=== PATIENT | male | born 1955 | race Native Hawaiian/Other Pacific Islander ===

== ENCOUNTER 2017-03-28 13:38 | Emergency (ER) | payer OTHER ==
[~2017-03-28] VITALS: Ht 182.9 cm; Wt 88.5 kg
[2017-03-28 14:00] VITALS: BP 136/84; TEMP 98.7
[2017-03-28] MEDS ORDERED: GABA300C2 PO (14:08)
[2017-03-28] MEDS ORDERED: XANAX XR1 MG OR (14:09)
[2017-03-28] MEDS ORDERED: HYDR5TAB9 PO (14:09)
[2017-03-28] MEDS ORDERED: LISI10TA11 PO (14:14)
== END 2017-03-28 15:10 | disposition left against medical advice (07) ==
LOC: ED 13:38
DX: R07.89 Other chest pain (principal)
CPT/HCPCS: 99281

== ENCOUNTER 2018-04-28 14:40 | Emergency (ER) | payer OTHER ==
[~2018-04-28] VITALS: Ht 182.9 cm; Wt 102.1 kg
[~2018-04-28 14:40] MED LIST: GABA300C2 PO; HYDR5TAB9 PO; LISI10TA11 PO; XANAX XR1 MG OR
[2018-04-28 15:10] VITALS: BP 140/99; TEMP 97.9
[2018-04-28] MEDS ORDERED: AMLODIPINE BESYLATE PO (15:44)
[2018-04-28] MEDS ORDERED: ROSUVASTATIN CA20 MG PO (15:47)
[2018-04-28] MEDS ORDERED: VITAMIN D50000 UNIT PO (15:47)
[2018-04-28] MEDS ORDERED: ESOMEPRAZOLE MA40 M1 PO (15:48)
[2018-04-28] MEDS ORDERED: NEURONTIN800 MG PO (15:48)
[2018-04-28] MEDS ORDERED: PROVENTIL INH (15:49)
[2018-04-28] MEDS ORDERED: XANAX XR1 MG PO (15:50)
[2018-04-28] MEDS ORDERED: LISI20TA31 PO (15:51)
[2018-04-28] MEDS ORDERED: ALL DAY ALLG10 MG PO (15:52)
[2018-04-28] MEDS ORDERED: HYDR10TA47A PO (15:52)
[2018-04-28] MEDS ORDERED: CITA20TA2 PO (15:54)
[2018-04-28] MEDS ORDERED: BACL10TA4 PO (15:54)
[2018-04-28] MEDS ORDERED: BEVESPI AEROSPH1 AER INH (15:57)
[2018-04-28] MEDS ORDERED: BENZONATATE200 MG PO (15:58)
== END 2018-04-28 16:20 | disposition home or self-care (01) ==
LOC: ED 14:40
DX: S60.031A Contusion of right middle finger without damage to nail, initial encounter (principal); W22.8XXA Striking against or struck by other objects, initial encounter; Y93.89 Activity, other specified; Y92.89 Other specified places as the place of occurrence of the external cause
CPT/HCPCS: 99282

== ENCOUNTER 2020-08-11 11:17 | Emergency (ER) | payer OTHER ==
[~2020-08-11] VITALS: Ht 182.9 cm; Wt 102.1 kg
[~2020-08-11 11:17] MED LIST changes: +ALL DAY ALLG10 MG PO; +AMLODIPINE BESYLATE PO; +BACL10TA4 PO; +BENZONATATE200 MG PO; +BEVESPI AEROSPH1 AER INH; +CITA20TA2 PO; +ESOMEPRAZOLE MA40 M1 PO; +HYDR10TA47A PO; +LISI20TA31 PO; +NEURONTIN800 MG PO; +PROVENTIL INH; +ROSUVASTATIN CA20 MG PO; +VITAMIN D50000 UNIT PO; +XANAX XR1 MG PO
[2020-08-11 12:45] VITALS: BP 124/75; TEMP 98.5
== END 2020-08-11 12:45 | disposition home or self-care (01) ==
LOC: ED 11:17
DX: S90.121A Contusion of right lesser toe(s) without damage to nail, initial encounter (principal); L03.031 Cellulitis of right toe; W22.09XA Striking against other stationary object, initial encounter; Y92.89 Other specified places as the place of occurrence of the external cause
CPT/HCPCS: 99282; 99283

== ENCOUNTER 2020-09-29 08:58 | Inpatient (IN) | payer OTHER ==
[2020-09-29] VITALS (7 sets, daily range): BP systolic 129–168; BP diastolic 79–98; TEMP 97.9–99.9; Ht 182.9 cm; Wt 99.0 kg
[~2020-09-29] VITALS: Ht 182.9 cm; Wt 99.0 kg
[2020-09-29 09:46] LABS: PLATELET COUNT 361 K/uL (142-355)
[2020-09-29 09:53] LABS: POTASSIUM 3.8 mmol/L (3.6-5.2); SODIUM 140 mmol/L (136-145)
[2020-09-29 10:02] LABS: PARTIAL THROMBOPLASTIN TIME 24.6 SECONDS (24.5-33.6)
[2020-09-29] MEDS ORDERED: BACLOFEN20 MG PO (17:14)
[2020-09-29] MEDS ORDERED: AMBIEN5 MG PO (17:14)
[2020-09-29] MEDS ORDERED: DULO30CA PO (17:16)
[2020-09-29] MEDS ORDERED: ACET-689 PO (17:18)
[2020-09-29] MEDS ORDERED: TRAM50TA PO (17:18)
--- NOTE | 2020-09-29 17:42 | NUR ---
09/29/20 1720 IV TO THE RAC REMOVED DUE TO INFILTRATION. APPLIED 2X2 AND SECURED WITH TAPE.
--- NOTE | 2020-09-29 19:45 | NUR ---
ENTERED PATIENT'S ROOM AT THIS TIME. PATIENT SITTING UP IN BED WATCHING TV. RESPIRATIONS EVEN AND UNLABORED. NAD NOTED. 22G TO LEFT FA FLUSHED WITH NS. NS @ 75 ML/HR INFUSING AT THIS TIME. INSTRUCTED PATIENT NOT TO PULL AT THE IV OR LINE. BED ALARM TURNED ON FOR SAFETY PRECAUTIONS. PATIENT IS ALERT AND ORIENTED, BUT DOES SEEM TO HAVE PARANOID TENDENCIES AT TIMES. BED LOCKED AND IN LOWEST POSITION. CALL LIGHT WITHIN REACH.
[2020-09-30] VITALS: BP 111/69; TEMP 98.2
--- NOTE | 2020-09-30 03:50 | NUR ---
I'VE ENTERED PATIENT'S ROOM MULTIPLE TIMES THIS SHIFT. HE IS ALERT AND ORIENTED. NO COMBATIVENESS OR CONFUSION SHOWN THIS SHIFT, BUT PATIENT HAS NOT SLEPT. HE IS LYING IN BED WATCHING TV. HE STATES THAT HE IS READY TO GO HOME IN THE MORNING. BED LOCKED AND IN LOWEST POSITION. CALL LIGHT WITHIN REACH. BED ALARM ON. [facility] INTACT.
[2020-09-30 04:00] VITALS: BP 137/77; TEMP 98.2
--- NOTE | 2020-09-30 06:00 | NUR ---
PATIENT LYING IN BED WATCHING TV. NAD NOTED. 22G TO LEFT FA INTACT WITH NO ERYTHEMA OR SWELLING NOTED. NS INFUSING @ 75ML/HR. BED ALARM ON. CALL LIGHT WITHIN REACH.
--- NOTE | 2020-09-30 06:34 | NUR ---
Patient screened as positive for the RD to review with a Dx. of Leukoctosis and is on a 2 gm Na diet plan and is a 65YOM and is 6 feet at 218.5 lbs. and IBW = 178+/-10% (160 to 196 lbs.) and kcal needs for IBW x 25 = 2000, x 30 = 2400, x 35 = 2800, x 40 = 3200, protein needs x 1.0 to 1.5 = 65 to 121 grams per day and fluids x 25 to 40 = 2000 to 3200 ml/cc per day. This patient left the facilit AMA and RD reviewed all medications and labs and labs reveal WBC, MVV, RDW, platelet count and glucose 134 all elevated and RBC depressed. BMI at 29.6 and is overweight and is 123% of IBW. History of smoking and is eating 75% of meals. RD Recommendations: 1-Monitor Labs 2-PT to work with the patient 3-OT to work with the patient 4-Add High Fiber to the diet plan and may want to add NCS or RCS 5-If won't follow the diet have a dietary refusal form signed 6-HOnor all food preferences and state on diet card and offere substitutes with meals
--- NOTE | 2020-09-30 07:50 | NUR ---
PCT IN TO OBTAIN AM V/S. PT LAYING IN BED WATCHING TV. NAD NOTED. IVF INFUSING WITHOUT DIFFICULTY.
[2020-09-30 08:00] VITALS: BP 131/73; TEMP 97.9
--- NOTE | 2020-09-30 08:25 | NUR ---
PT CALLED TO [facility] C/O EYE PAIN. PT ASSESSMENT COMPLETED. MILD REDNESSNOTED TO PT'S LEFT EYE PT NOTED TO BE RUBBING EYE. ENCOURAGED PT NOT TO RUB EYE. PT DENIES ANY BURNING OR ITCHING IN EYE JUST PAIN. DR. PEREZ NOTIFIED.
--- NOTE | 2020-09-30 08:30 | NUR ---
EDUCATED PT ON REASON FOR ADMISSION, WAITING FOR LAB WORK AND FOR DR. PEREZ TO MAKE ROUNDS AND EXPLAINED TO HIM THAT IT COULD BE BETWEEN NOW AND LUNCH TIME. PT VERBALIZED UNDERSTANDING.
--- NOTE | 2020-09-30 08:35 | NUR ---
CALLED [phone] TO SPEAK WITH EMERGENCY CONTACT NO ONE ANSWERED THE PHONE.
[2020-09-30 08:44] LABS: PLATELET COUNT 254 K/uL (142-355)
--- NOTE | 2020-09-30 08:45 | NUR ---
IN TO GIVE PT AM MEDS. PT TOLERATED AM MEDS WELL. PT EATING BREAKFAST. PT REPORTS HE IS READY TO GO HOME. EDUCATED ON DISCHARGE PROCESS AND BLOOD WORK.
[2020-09-30 08:59] LABS: POTASSIUM 3.4 mmol/L (3.6-5.2)
--- NOTE | 2020-09-30 10:00 | NUR ---
PT CALLED TO [facility] REQUESTING HIS CLOTHES. PT REMINDED THAT HE DID NOT HAVE ANY CLOTHES WHEN HE CAME. PT STATES "OH GOD I FORGOT, I'LL CALL GAB[facility] NOW AND SEE IF HE CAN GO TO MY HOUSE AND GET ME SOME" PT NOTED TO HAVE PULLED HIS 22G IV TO LEFT FOREARM OUT. PT REPORTS I'M LEAVING. 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 PT THEN STATES "NO RENU SAID BETWEEN 0800 AND 1000, IS THE LAB WORK BACK?" NOTIFIED PT LAB WORK IS BACK AND WE ARE WAITING FOR FURTHER ORDERS, PT THEN STATES "UNLESS SHE WALKS IN THE DOOR RIGHT NOW I AM LEAVING" ENCOURAGED PT TO WAIT FOR DISCHARGE AT LEAST, BUT THAT HE COULD CALL FOR CLOTHES AND A RIDE IF HE CHOOSES NOT TO WAIT. PT STATES "OK I'LL GO AHEAD AND CALL AND IF SHE ISNT HERE IN A FEW MINUTES I AM LEAVING" DR. PEREZ NOTIFIED BY ELOISE BONILLA RN PER ELOISE DISCHARGE ORDERS HAVE BEEN GIVEN JUST LET PT KNOW. 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 PT AGREED TO WAIT ON DISCHARGE PAPERS.
--- NOTE | 2020-09-30 10:40 | NUR ---
PT GIVEN DISCHARGE PAPERS AT THIS TIME. EXPLAINED DISCHARGE AND HOME MEDICATIONS TO CON'T WITH PT. PT TO FOLLOW UP WITH HIS PCP IN 3-5 DAYS. PT REPORTS HE ALREADY HAS AN APPT ON September. PT VERBALIZED UNDERSTANDING ON ALL DISCHARGE INSTRUCTIONS. PT AWAITING FOR FAMILY TO PICK HIM UP.
--- NOTE | 2020-09-30 11:05 | NUR ---
PT DC'D VIA AMBULATORY PER HIS REQUEST. ACCOMPANIED PT UP TO FRONT OF FACILITY. PT LEFT WITH HIS BROTHER AT THIS TIME.
== END 2020-09-30 11:05 | disposition home or self-care (01) | DRG 948 ==
LOC: ED 08:58 → MED/SURG 13:30
PROVIDERS: ADMIT Family Medicine; ATTEND Internal Medicine
DX: R41.82 Altered mental status, unspecified (principal); D72.828 Other elevated white blood cell count; J44.9 Chronic obstructive pulmonary disease, unspecified; K21.9 Gastro-esophageal reflux disease without esophagitis; F19.10 Other psychoactive substance abuse, uncomplicated; I10 Essential (primary) hypertension
CPT/HCPCS: 36415; 51702; 80048; 80053; 80307; 80320; 80329; 81000; 83605; 84484; 85027; 85610; 85730; 87040; 87635; 93005; 96360; 96365; 96375; 96376; 99284; J0696; J2060; J2405; J3490; U0003

== ENCOUNTER 2021-02-22 13:20 | Emergency (ER) | payer OTHER ==
[~2021-02-22] VITALS: Ht 182.9 cm; Wt 108.9 kg
[~2021-02-22 13:20] MED LIST changes: +ACET-689 PO; +AMBIEN5 MG PO; +BACLOFEN20 MG PO; +DULO30CA PO; +TRAM50TA PO
[2021-02-22 13:24] VITALS: BP 154/90; TEMP 98
[2021-02-22 14:07] LABS: PLATELET COUNT 391 K/uL (142-355)
== END 2021-02-22 14:56 | disposition home or self-care (01) ==
LOC: ED 13:20
PROVIDERS: Hospitalist
DX: J44.1 Chronic obstructive pulmonary disease with (acute) exacerbation (principal); Z20.822 Contact with and (suspected) exposure to COVID-19; F17.210 Nicotine dependence, cigarettes, uncomplicated
CPT/HCPCS: 80048; 85027; 87635; 96372; 99283; J2930; U0003

== ENCOUNTER 2021-06-13 14:14 | Outpatient (CLI) | payer OTHER | END 2021-06-13 19:17 | disposition home or self-care (01) | LOC: RAD 14:14 | PROVIDERS: ATTEND Nurse Practitioner Family | DX: M25.522 Pain in left elbow (principal); M25.512 Pain in left shoulder ==

== ENCOUNTER 2021-12-18 10:53 | Outpatient (CLI) | payer BC, OTHER | END 2021-12-18 18:54 | disposition home or self-care (01) | LOC: RAD 10:53 | PROVIDERS: ATTEND Internal Medicine Sleep Medicine | DX: J44.9 Chronic obstructive pulmonary disease, unspecified (principal) ==

== ENCOUNTER 2022-01-22 10:53 | Outpatient (CLI) | payer BC, OTHER | END 2022-01-22 19:00 | disposition home or self-care (01) | LOC: CT 10:53 | PROVIDERS: ATTEND Internal Medicine Sleep Medicine | DX: F17.210 Nicotine dependence, cigarettes, uncomplicated (principal) ==

== ENCOUNTER 2022-04-04 17:10 | Emergency (ER) | payer BC, OTHER ==
[~2022-04-04] VITALS: Ht 182.9 cm; Wt 111.1 kg
[2022-04-04 17:30] VITALS: TEMP 97.4
[2022-04-04 20:00] VITALS: BP 158/80
[2022-04-04 20:23] LABS: PLATELET COUNT 301 K/uL (142-355)
[2022-04-04 20:36] LABS: POTASSIUM 4.1 mmol/L (3.6-5.2)
[2022-04-04 20:39] LABS: PARTIAL THROMBOPLASTIN TIME 27.9 SECONDS (24.5-33.6)
[2022-04-07] MEDS ORDERED: TAMS0.4C PO (14:39)
[2022-04-07] MEDS ORDERED: ALBUTEROL108 MCG/AC INH (14:42)
[2022-04-07] MEDS ORDERED: DULOXETINE HYDR60 MG PO (14:42)
[2022-04-07] MEDS ORDERED: PIOG30TA PO (14:43)
[2022-04-07] MEDS ORDERED: TRELEGY ELLIPTA1 AER INH (14:44)
[2022-04-07] MEDS ORDERED: GEMFIBROZIL PO (14:46)
[2022-04-07] MEDS ORDERED: MECLIZINE25 MG PO (14:47)
[2022-04-07] MEDS ORDERED: LISINOP/HCTZ1 TA2 PO (14:48)
[2022-04-07] MEDS ORDERED: MOBIC15 MG PO (14:49)
[2022-04-07] MEDS ORDERED: ASA LOW DOSE81 MG PO (14:50)
[2022-04-07] MEDS ORDERED: INSU300I SC (15:20)
== END 2022-04-04 21:46 | disposition left against medical advice (07) ==
LOC: ED 17:10
PROVIDERS: Emergency Medicine
DX: E11.65 Type 2 diabetes mellitus with hyperglycemia (principal); Z79.84 Long term (current) use of oral hypoglycemic drugs; E87.1 Hypo-osmolality and hyponatremia; F17.210 Nicotine dependence, cigarettes, uncomplicated
CPT/HCPCS: 36415; 80053; 81002; 82948; 84484; 85027; 85610; 85730; 87502; 93005; 96360; 96361; 96374; 96375; 99283; 99284; J1815

== ENCOUNTER 2022-12-11 12:34 | Outpatient (CLI) | payer OTHER ==
[~2022-12-11 12:34] MED LIST changes: +ALBUTEROL108 MCG/AC INH; +ASA LOW DOSE81 MG PO; +DULOXETINE HYDR60 MG PO; +GEMFIBROZIL PO; +INSU300I SC; +LISINOP/HCTZ1 TA2 PO; +MECLIZINE25 MG PO; +MOBIC15 MG PO; +PIOG30TA PO; +TAMS0.4C PO; +TRELEGY ELLIPTA1 AER INH
== END 2022-12-11 20:29 | disposition home or self-care (01) ==
LOC: RAD 12:34
PROVIDERS: ATTEND Internal Medicine
DX: R06.02 Shortness of breath (principal)

== ENCOUNTER 2023-03-11 14:17 | Outpatient (CLI) | payer OTHER | END 2023-03-11 18:59 | disposition home or self-care (01) | LOC: RAD 14:17 | PROVIDERS: ATTEND Internal Medicine | DX: M54.59 Other low back pain (principal) ==

== ENCOUNTER 2023-07-21 15:06 | Outpatient (CLI) | payer OTHER | END 2023-07-21 19:23 | disposition home or self-care (01) | LOC: RESP 15:06 | PROVIDERS: ATTEND Specialist | DX: R06.09 Other forms of dyspnea (principal); R00.2 Palpitations ==